=== PATIENT | female | born 2005 | race Two or more races ===

== ENCOUNTER → 2024-06-07 | Outpatient (CLI) | payer MEDICAID ==
[2024-06-07 12:00] LABS: Urine Bacteria MOD /hpf (None Seen); Urine Blood Negative /uL (Negative); Urine Clarity Ex.Turbid (Clear); Urine Color Colorless (Yellow); Urine Mucus FEW (None Seen); Urine Protein, UAD TRACE (Negative); Urine Specific Gravity 1.018 (1.001-1.035); Urine Urobilinogen Normal (Negative); Urine WBC 27 /hpf (0 - 5); Urine pH 6.5 (5.0-9.0)
[2024-06-07 12:06] LABS: Alanine Aminotransferase 23 U/L (7-40); Albumin 4.2 g/dL (3.2-4.8); Alkaline Phosphatase 115 U/L (46-116); Anion Gap 7 (5-15); Aspartate Aminotransferase 21 U/L (13-40); Calcium 9.8 mg/dL (8.7-10.4); Carbon Dioxide 25 mmol/L (20-31); Chloride 107 mmol/L (98-107); Cholesterol 225 mg/dL (< 200); Glucose 85 mg/dL (74-106); HDL Cholesterol 64 mg/dL (40-59); LDL Cholesterol 134 mg/dL (< 100); Potassium 3.9 mmol/L (3.5-5.1); Sodium 139 mmol/L (136-145); Triglycerides 209 mg/dL (< 150)
[2024-06-07 12:07] LABS: Bilirubin, Total 0.5 mg/dL (0.2-1.0); Total Protein 7.3 g/dL (5.7-8.2)
[2024-06-07 12:10] LABS: BUN/Creatinine Ratio 9.1 (10.0-20.0); Blood Urea Nitrogen < 5 mg/dL (9-23)
[2024-06-07 12:35] LABS: Amphetamine Screen, Urine Neg (NEGATIVE); Barbiturate Scree,Urine Neg (NEGATIVE); Basophils # (auto) 0.1 10 ^3/uL (0-0.2); Basophils % (auto) 0.8 % (0.0-2.0); Benzodiazephine Screen, Urine Neg (NEGATIVE); Cocaine Screen, Urine Neg (NEGATIVE); Eosinophils # (auto) 0.2 10 ^3/uL (0-0.8); Eosinophils % (auto) 2.3 % (0.0-7.0); Hematocrit 37.9 % (36.0-46.0); Hemoglobin 13.1 g/dL (12.2-16.2); Lymphocytes # (auto) 2.4 10 ^3/uL (0.4-5.4); Lymphocytes % (auto) 27.9 % (10.0-50.0); Mean Corpuscular Hemoglobin 28.5 pg (28.0-32.0); Mean Corpuscular Hgb Conc. 34.5 g/dL (32.0-36.0); Mean Corpuscular Volume 82.5 fL (80.0-100.0); Monocytes # (auto) 0.4 10 ^3/uL (0-1.3); Monocytes % (auto) 5.2 % (0.0-12.0); Neutrophils # (auto) 5.5 10 ^3/uL (1.6-8.6); Neutrophils % (auto) 63.8 % (37.0-80.0); Opiate Scree,Urine Neg (NEGATIVE); Platelet Count (auto) 230 10^3/uL (140-450); Red Blood Cells 4.59 10^6/uL (4.0-5.20); Red Cell Distribution Width 14.2 % (11.8-14.3); White Blood Cell 8.6 10^3/uL (4.4-10.8)
[2024-06-07 12:36] LABS: Cannabinoid Screen, Urine Neg (NEGATIVE); Phencyclidine Screen, Urine Neg (NEGATIVE)
[2024-06-08 05:08] LABS: RPR Non Reactive (Non Reactive)
[2024-06-08 07:06] LABS: Varicella Zoster IgG Antibody Reactive (Non Reactive)
[2024-06-09 12:07] LABS: QuantiFERON-TB Gold Plus Negative (Negative)
== END | disposition home or self-care (01) ==
LOC: LAB 11:02
DX: Z34.00 Encounter for supervision of normal first pregnancy, unspecified trimester (principal); Z31.430 Encounter of female for testing for genetic disease carrier status for procreative management; Z36.0 Encounter for antenatal screening for chromosomal anomalies; N39.0 Urinary tract infection, site not specified
CPT/HCPCS: 36415; 80053; 80061; 80307; 81001; 83036; 84439; 84443; 85025; 86592; 86762; 86787; 86850; 86900; 86901; 87340; 87902

== ENCOUNTER → 2024-07-18 | Outpatient (CLI) | payer MEDICAID ==
[2024-07-18 10:31] LABS: Basophils # (auto) 0.1 10 ^3/uL (0-0.2); Basophils % (auto) 0.8 % (0.0-2.0); Eosinophils # (auto) 0.1 10 ^3/uL (0-0.8); Eosinophils % (auto) 1.5 % (0.0-7.0); Hematocrit 36.5 % (36.0-46.0); Hemoglobin 12.2 g/dL (12.2-16.2); Lymphocytes # (auto) 2.1 10 ^3/uL (0.4-5.4); Lymphocytes % (auto) 26.3 % (10.0-50.0); Mean Corpuscular Hemoglobin 27.6 pg (28.0-32.0); Mean Corpuscular Hgb Conc. 33.5 g/dL (32.0-36.0); Mean Corpuscular Volume 82.5 fL (80.0-100.0); Monocytes # (auto) 0.5 10 ^3/uL (0-1.3); Monocytes % (auto) 5.8 % (0.0-12.0); Neutrophils # (auto) 5.2 10 ^3/uL (1.6-8.6); Neutrophils % (auto) 65.6 % (37.0-80.0); Nucleated Red Blood Cells % 0.1 %; Platelet Count (auto) 220 10^3/uL (140-450); Red Blood Cells 4.42 10^6/uL (4.0-5.20); Red Cell Distribution Width 14.8 % (11.8-14.3); White Blood Cell 7.9 10^3/uL (4.4-10.8)
[2024-07-18 10:53] LABS: INR 0.97 (0.9-1.15); Partial Thromboplastin Time 28.8 SEC (24.5-34.5); Prothrombin Time 10.3 sec (9.3-11.8)
[2024-07-18 11:03] LABS: Alanine Aminotransferase 28 U/L (7-40); Anion Gap 8 (5-15); Aspartate Aminotransferase 23 U/L (13-40); BUN/Creatinine Ratio 9.8 (10.0-20.0); Bilirubin, Total 0.5 mg/dL (0.2-1.0); Calcium 9.8 mg/dL (8.7-10.4); Carbon Dioxide 25 mmol/L (20-31); Chloride 105 mmol/L (98-107); Glucose 88 mg/dL (74-106); Potassium 4.2 mmol/L (3.5-5.1); Sodium 138 mmol/L (136-145); Total Protein 6.8 g/dL (5.7-8.2)
[2024-07-18 11:22] LABS: Alkaline Phosphatase 131 U/L (46-116); Blood Urea Nitrogen 6 mg/dL (9-23)
[2024-07-18 11:30] LABS: Protein, Urine 20.6 mg/dL (1-14)
[2024-07-18 11:32] LABS: Creatinine, Urine 162.3 mg/dL (30.0-125.0); Urine Protein/Creatinine Ratio 0.13
== END | disposition home or self-care (01) ==
LOC: LAB 10:14
DX: Z34.00 Encounter for supervision of normal first pregnancy, unspecified trimester (principal)
CPT/HCPCS: 36415; 80053; 82570; 84156; 84550; 85025; 85610; 85730

== ENCOUNTER 2024-07-24 13:12 | Emergency (ER) | payer MEDICAID ==
[~2024-07-24] VITALS: Ht 177.8 cm; Wt 104.8 kg
[2024-07-24 14:12] LABS: Urine Bacteria MOD /hpf (None Seen); Urine Blood Negative /uL (Negative); Urine Clarity Turbid (Clear); Urine Color Light-Yellow (Yellow); Urine Mucus FEW (None Seen); Urine Protein, UAD Negative (Negative); Urine Specific Gravity 1.011 (1.001-1.035); Urine Squamous Epithelial Cell FEW /hpf (<5); Urine Urobilinogen Normal (Negative); Urine WBC 3 /hpf (0 - 5)
[2024-07-24 14:22] LABS: Basophils # (auto) 0.1 10 ^3/uL (0-0.2); Basophils % (auto) 0.8 % (0.0-2.0); Eosinophils # (auto) 0.2 10 ^3/uL (0-0.8); Eosinophils % (auto) 2.9 % (0.0-7.0); Hematocrit 35.8 % (36.0-46.0); Hemoglobin 11.9 g/dL (12.2-16.2); Lymphocytes # (auto) 1.9 10 ^3/uL (0.4-5.4); Lymphocytes % (auto) 26.9 % (10.0-50.0); Mean Corpuscular Hemoglobin 27.6 pg (28.0-32.0); Mean Corpuscular Hgb Conc. 33.2 g/dL (32.0-36.0); Mean Corpuscular Volume 83.2 fL (80.0-100.0); Monocytes # (auto) 0.5 10 ^3/uL (0-1.3); Monocytes % (auto) 7.5 % (0.0-12.0); Neutrophils # (auto) 4.5 10 ^3/uL (1.6-8.6); Neutrophils % (auto) 61.9 % (37.0-80.0); Platelet Count (auto) 226 10^3/uL (140-450); Red Blood Cells 4.31 10^6/uL (4.0-5.20); Red Cell Distribution Width 14.4 % (11.8-14.3); White Blood Cell 7.2 10^3/uL (4.4-10.8)
--- NOTE | 2024-07-24 14:29 | DVH ---
Procedure: US OB ULTRASOUND COMP GTR 14 WKS 07/24/2024 01:32 PM HISTORY: ab pain COMPARISON: None TECHNIQUE: Sonogram of the gravid uterus was performed. FINDINGS: Single living intrauterine gestation. Presentation: Cephalic Placenta: Posterior with no evidence for previa or abruption heart rate: 160 bpm DVP: 2.9 cm Maternal cervix: Closed, 3.4 cm in the transabdominal study The following measurements were obtained: Biparietal diameter: 6.2 cm corresponding to 25 weeks and 1 day Head Circumference: 22.7 cm corresponding to 24 weeks and 5 days Abdominal Circumference: 20.3 cm corresponding to 24 weeks and 6 days Femoral Length: 4.3 cm corresponding to 24 weeks and 0 day Average Ultrasound Age: 24 weeks and 5 days Estimated Date of Delivery by US: 11/08/2024 Estimated Weight: 709 g corresponding to 41st percentile based on LMP dating IMPRESSION: 1. Single currently living intrauterine gestation, as described above.
[2024-07-24 14:31] LABS: Chloride 106 mmol/L (98-107); Potassium 3.9 mmol/L (3.5-5.1); Sodium 139 mmol/L (136-145)
[2024-07-24 14:32] LABS: Anion Gap 7 (5-15); Carbon Dioxide 26 mmol/L (20-31)
[2024-07-24 14:33] LABS: Calcium 9.3 mg/dL (8.7-10.4)
[2024-07-24 14:38] LABS: BUN/Creatinine Ratio 9.1 (10.0-20.0); Blood Urea Nitrogen < 5 mg/dL (9-23); Glucose 105 mg/dL (74-106)
--- NOTE | 2024-07-24 15:01 | ED.PDOC ---
History of Present Illness HPI Comments 19 y/o F presents with non-radiating, RUQ abdominal pain, lower back pain, and frontal headache for the past 3x days, today. Patient reports being 24x weeks , currently, and has been having intermittent abdominal pain that comes and goes with no specific pattern since initial unprovoked onset along with intermittent back pain and headache. She admits to having an GARAGE MANAGER provider Miracle CHERY. She denies having any additional relevant of pertinent Hx, such as any prescription medication use. She denies having any nausea, vomiting, diarrhea, vaginal bleeding, fever, chills, or other associated symptoms or modifiers at this time. Chief Complaint: Abdominal Pain Time Seen by MD: 14:20 Primary Care Provider: none Reviewed Notes: Nurses Notes, Medications, Allergies Allergies: Coded Allergies: NO KNOWN ALLERGIES (Unverified , 07/24/24) Home Meds Active Scripts Acetaminophen (Acetaminophen) 500 Mg Tab, 500 MG PO Q6HP PRN for 14 Days, #56 TAB 0 Refills Prov:RAVIN PARR NP 07/24/24 Information Source: Patient Mode of Arrival: Ambulatory Severity: Moderate Timing: Days Duration: Since onset Prehospital treatment: None Past Medical History Past Medical History (Other): obesity Surgical History: Denies all surgeries MEDICAID BILLING SPECIALIST History: Denies all MEDICAID BILLING SPECIALIST Hx Family History Family History: Reviewed,noncontributory to illness, Unknown Social History Smoker: Non-Smoker Alcohol: Denies ETOH Use Drugs: Denies Drug Use Lives In: Home Gastrointestinal: reports: abdominal pain Neurological: reports: headache Musculoskeletal: reports: back pain All Other Systems: Reviewed and Negative (negative unless otherwise stated above or in HPI) Physical Exam General Appearance: No Apparent Distress, Obese HEENT: Normal ENT Inspection, Pharynx Normal, TMs Normal Neck: Full Range of Motion, Non-Tender, Normal, Normal Inspection Respiratory: Chest Non-Tender, Lungs Clear, No Accessory Muscle Use, No Respiratory Distress, Normal Breath Sounds Cardiovascular: No Edema, No JVD, No Murmur, No Gallop, Normal Peripheral Pulses, Regular Rate/Rhythm Breast Exam: Deferred Gastrointestinal: No Organomegaly, Non Tender, No Pulsatile Mass, Normal Bowel Sounds, Soft Genitalia: Deferred Pelvic: Deferred Rectal: Deferred Extremities: No calf tenderness, Normal capillary refill, Normal inspection, Normal range of motion, Non-tender, No pedal edema Musculoskeletal : Location: Bilateral Extremity Location: Other (bilateral CVA - 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 Was a procedure done?: No Differential Dx Considerations may include: at-risk , threatened , gastritis, gastroenteritis, PUD, GERD, pyelonephritis, nephrolithiasis, cholelithiasis, cholecystitis, cystitis X-Ray, Labs, Meds, VS Vital Signs Date Time Temp Pulse Resp B/P (MAP) Pulse Ox O2 Delivery O2 Flow Rate FiO2 07/24/24 15:23 98.0 97 17 121/68 (85) 97 98.0 07/24/24 15:23 98 16 99 Room Air 07/24/24 13:28 98.0 102 17 127/69 (88) 99 Lab Test 07/24/24 14:07 07/24/24 13:48 Range/Units White Blood Count 7.2 4.4-10.8 10^3/uL Red Blood Count 4.31 4.0-5.20 10^6/uL Hemoglobin 11.9 L 12.2-16.2 g/dL Hematocrit 35.8 L 36.0-46.0 % Mean Corpuscular Volume 83.2 80.0-100.0 fL Mean Corpuscular Hemoglobin 27.6 L 28.0-32.0 pg Mean Corpuscular Hemoglobin Concent 33.2 32.0-36.0 g/dL Red Cell Distribution Width 14.4 H 11.8-14.3 % Platelet Count 226 140-450 10^3/uL Mean Platelet Volume 9.4 6.9-10.8 fL Neutrophils (%) (Auto) 61.9 37.0-80.0 % Lymphocytes (%) (Auto) 26.9 10.0-50.0 % Monocytes (%) (Auto) 7.5 0.0-12.0 % Eosinophils (%) (Auto) 2.9 0.0-7.0 % Basophils (%) (Auto) 0.8 0.0-2.0 % Neutrophils # (Auto) 4.5 1.6-8.6 10 ^3/uL Lymphocytes # (Auto) 1.9 0.4-5.4 10 ^3/uL Monocytes # (Auto) 0.5 0-1.3 10 ^3/uL Eosinophils # (Auto) 0.2 0-0.8 10 ^3/uL Basophils # (Auto) 0.1 0-0.2 10 ^3/uL Nucleated Red Blood Cells 0.0 % Sodium Level 139 136-145 mmol/L Potassium Level 3.9 3.5-5.1 mmol/L Chloride Level 106 98-107 mmol/L Carbon Dioxide Level 26 20-31 mmol/L Anion Gap 7 5-15 Blood Urea Nitrogen < 5 L 9-23 mg/dL Creatinine 0.55 0.550-1.02 mg/dL Glomerular Filtration Rate Calc 134 >90 mL/min BUN/Creatinine Ratio 9.1 L 10.0-20.0 Serum Glucose 105 74-106 mg/dL Calcium Level 9.3 8.7-10.4 mg/dL Beta HCG, Quantitative 4692.4 H 1.5-4.2 mIU/mL Urine Color Light-yellow Yellow Urine Clarity Turbid H Clear Urine pH 6.0 5.0-9.0 Urine Specific [place] 1.011 1.001-1.035 Urine Protein Negative Negative Urine Ketones Negative Negative Urine Blood Negative Negative /uL Urine Nitrite Negative Negative Urine Bilirubin Negative Negative Urine Urobilinogen Normal Negative mg/dL Urine Leukocyte Esterase Trace Negative /uL Urine RBC 1 0 - 4 /hpf Urine WBC 3 0 - 5 /hpf Urine Squamous Epithelial Cells Few <5 /hpf Urine Bacteria Mod H None Seen /hpf Urine Mucus Few None Seen Urine Glucose Normal Normal mg/dL [place] [address] Ph: [phone] DIAGNOSTIC IMAGING Diagnostic Imaging Report : [id number] Signed PATIENT: ANYA RICHARDSON ACCT: [id number] UNIT: [id number] : 2005 LOC: ER ROOM / BED: / AGE / SEX: 19 / F ADM STATUS: REG ER SERVICE 1331 ORDERING PHYSICIAN: RAVIN PARR NP PROCEDURE(s): OBUS - OB ULTRASOUND COMP GTR 14 WKS REASON: ab pain ORDER NUMBER(s): [id number], ACCESSION NUMBER(s): [id number] Procedure: US OB ULTRASOUND COMP GTR 14 WKS 07/24/2024 01:32 PM HISTORY: ab pain COMPARISON: None TECHNIQUE: Sonogram of the gravid uterus was performed. FINDINGS: Single living intrauterine gestation. Presentation: Cephalic Placenta: Posterior with no evidence for previa or abruption heart rate: 160 bpm DVP: 2.9 cm Maternal cervix: Closed, 3.4 cm in the transabdominal study The following measurements were obtained: Biparietal diameter: 6.2 cm corresponding to 25 weeks and 1 day Head Circumference: 22.7 cm corresponding to 24 weeks and 5 days Abdominal Circumference: 20.3 cm corresponding to 24 weeks and 6 days Femoral Length: 4.3 cm corresponding to 24 weeks and 0 day Average Ultrasound Age: 24 weeks and 5 days Estimated Date of Delivery by US: 11/08/2024 Estimated Weight: 709 g corresponding to 41st percentile based on LMP dating IMPRESSION: 1. Single currently living intrauterine gestation, as described above. ATED BY: KIARA DEAN MD DICTATED DATE/TIME: 07/24/241426 SIGNED BY: KIARA DEAN MD SIGNED DATE/TIME: 07/24/241426 CC: X-Ray, Labs, Meds, VS Comment On reevaluation, patient had symptomatic improvement. Patient is stable for discharge at this time. External notes reviewed. Test results and diagnostic imaging interpreted. All diagnostic findings, discharge care, education and instructions provided Follow-up with PCP in 2 to 3 days Patient verbalized understanding and agreed to treatment plan Vital signs stable, afebrile, no acute distress noted Patient ambulatory with strong steady gait Advised to return precautions for any new or worsening symptoms, return to ER immediately for re-evaluation Patient is aware that the purpose of this visit was for an acute medical emergency requiring emergent stabilization. Chronic conditions, including malignancies have not been ruled out. Patient is instructed to follow up with PCP as directed and discharge instructions for continued care and workup. If unable to arrange follow-up, patient is to return to the emergency department for reassessment. Patient (parent or legal guardian if applicable) was given verbal and written discharge instructions and acknowledges understanding. Time of 1ST Reevaluation: 14:50 Reevaluation 1ST: Improved Patient Education/Counseling: Diagnosis, Treatment Family Education/Counseling: No Family Present Departure 1 Departure Time of Disposition: 15:19 Impression: Primary Impression: Headache Qualified Codes: R51.9 - Headache, unspecified Additional Impressions: Back pain Qualified Codes: M54.9 - Dorsalgia, unspecified Qualified Codes: Z3A.24 - 24 weeks gestation of Disposition: HOME / SELF CARE / HOMELESS Condition: Stable e-Prescriptions Acetaminophen (Acetaminophen) 500 Mg Tab 500 MG PO Q6HP PRN for 14 Days, #56 TAB 0 Refills Prov: RAVIN PARR NP 07/24/24 Critical Care Note Critical Care Time?: No Stability Stability form required: No Heart Score Heart Score: Heart Score Response (Comments) Value History N/A 0 EKG N/A 0 Age N/A 0 Risk Factors N/A 0 Troponin N/A 0 Total 0 I personally scribed for RAVIN PARR NP ([email or web address]) on 07/24/24 at 15:01. Electronically submitted by Jus Garza ([email or web address]). RAVIN PARR NP Jul 24, 2024 15:01
[2024-07-24] MEDS ORDERED: ACET500T58 PO (15:19)
[2024-07-24 15:23] VITALS: BP 121/68; PULSE 98; RESP 16; TEMP 98; O2SAT 99
== END 2024-07-24 15:26 | disposition home or self-care (01) ==
LOC: ER 13:12
DX: O26.892 Other specified pregnancy related conditions, second trimester (principal); R10.2 Pelvic and perineal pain; O99.212 Obesity complicating pregnancy, second trimester; R51.9 Headache, unspecified; M54.50 Low back pain, unspecified; R10.11 Right upper quadrant pain; Z36.87 Encounter for antenatal screening for uncertain dates; Z36.89 Encounter for other specified antenatal screening; Z3A.25 25 weeks gestation of pregnancy
CPT/HCPCS: 36415; 76805; 80048; 81001; 84702; 85025

== ENCOUNTER → 2024-08-16 | Outpatient (CLI) | payer MEDICAID ==
[~2024-08-16] MED LIST: ACET500T58 PO
[2024-08-16 11:39] LABS: Basophils # (auto) 0 10 ^3/uL (0-0.2); Basophils % (auto) 0.3 % (0.0-2.0); Eosinophils # (auto) 0.1 10 ^3/uL (0-0.8); Eosinophils % (auto) 1.4 % (0.0-7.0); Hematocrit 36.6 % (36.0-46.0); Hemoglobin 12.3 g/dL (12.2-16.2); Lymphocytes % (auto) 22.3 % (10.0-50.0); Mean Corpuscular Hemoglobin 27.1 pg (28.0-32.0); Mean Corpuscular Hgb Conc. 33.6 g/dL (32.0-36.0); Mean Corpuscular Volume 80.6 fL (80.0-100.0); Monocytes # (auto) 0.5 10 ^3/uL (0-1.3); Monocytes % (auto) 5.3 % (0.0-12.0); Neutrophils # (auto) 6.4 10 ^3/uL (1.6-8.6); Neutrophils % (auto) 70.7 % (37.0-80.0); Nucleated Red Blood Cells % 0.1 %; Platelet Count (auto) 240 10^3/uL (140-450); Red Blood Cells 4.53 10^6/uL (4.0-5.20); White Blood Cell 9.1 10^3/uL (4.4-10.8)
[2024-08-16 11:49] LABS: Alanine Aminotransferase 16 U/L (7-40); Albumin 4.1 g/dL (3.2-4.8); Anion Gap 7 (5-15); Aspartate Aminotransferase 15 U/L (13-40); Calcium 9.7 mg/dL (8.7-10.4); Carbon Dioxide 24 mmol/L (20-31); Chloride 106 mmol/L (98-107); Glucose 86 mg/dL (74-106); Potassium 4.3 mmol/L (3.5-5.1); Sodium 137 mmol/L (136-145)
[2024-08-16 11:50] LABS: Bilirubin, Total 0.4 mg/dL (0.2-1.0); Total Protein 6.9 g/dL (5.7-8.2)
[2024-08-16 11:55] LABS: Alkaline Phosphatase 148 U/L (46-116); BUN/Creatinine Ratio 8.5 (10.0-20.0); Blood Urea Nitrogen < 5 mg/dL (9-23)
[2024-08-17 22:06] LABS: Chlamydia Trachomatis, NAA Negative (Negative); Neisseria gonorrhoeae, NAA Negative (Negative)
== END | disposition home or self-care (01) ==
LOC: LAB 11:00
PROVIDERS: ATTEND Obstetrics & Gynecology
DX: Z34.00 Encounter for supervision of normal first pregnancy, unspecified trimester (principal)
CPT/HCPCS: 36415; 80053; 82951; 83036; 85025; 86703; 87086

== ENCOUNTER 2024-08-31 12:00 | Observation (INO) | payer MEDICAID ==
[~2024-08-31] VITALS: Ht 172.7 cm; Wt 104.3 kg
--- NOTE | 2024-08-31 14:03 | DVHDS2 ---
Physician Discharge Progress N Final Diagnosis: cholestasis Operations or Procedures: Operations or Procedures carlosbaileechase Commentary: Commentary start actigal 300mg bid Condition on Discharge: Good Disposition: Home Discharge Instructions: Diet: Regular Activity: No Restrictions, As Tolerated Medications: actigal Follow Up Care: Specialist: 4d Discharge Statement: "Patient was advised to return to the ER or call 911 if any headaches, dizziness, shortness of breath, chest pain, abdominal pain, bleeding, fevers, or worsening of medical condition. Patient was counseled about treatment plan, medications, possible side effects, patientverbalized understanding. All questions were answered to the best of my ability. This discharge took greater then 30 minutes in planning, reviewing documentation, counseling the patient, and discussing with other team members." DAKSHA SMITH DO Aug 31, 2024 14:03
--- NOTE | 2024-08-31 14:31 | DVH ---
OB ULTRASOUND COMPLETE: HISTORY: EVELIO check TECHNIQUE: Multiple transabdominal real-time grayscale images of the gravid uterus with duplex Dopple r color flow and M-mode spectral analysis. FINDINGS: EVELIO equals 12.3 cm. Posterior placenta. Cephalic presentation. heart rate 141. IMPRESSION: EVELIO as above.
[2024-08-31 14:38] LABS: Basophils # (auto) 0 10 ^3/uL (0-0.2); Basophils % (auto) 0.3 % (0.0-2.0); Eosinophils # (auto) 0.1 10 ^3/uL (0-0.8); Eosinophils % (auto) 1.7 % (0.0-7.0); Hematocrit 36.9 % (36.0-46.0); Hemoglobin 12.4 g/dL (12.2-16.2); Lymphocytes # (auto) 2.2 10 ^3/uL (0.4-5.4); Lymphocytes % (auto) 27.8 % (10.0-50.0); Mean Corpuscular Hemoglobin 27.2 pg (28.0-32.0); Mean Corpuscular Hgb Conc. 33.7 g/dL (32.0-36.0); Mean Corpuscular Volume 80.8 fL (80.0-100.0); Monocytes # (auto) 0.5 10 ^3/uL (0-1.3); Monocytes % (auto) 6.5 % (0.0-12.0); Neutrophils # (auto) 5.1 10 ^3/uL (1.6-8.6); Neutrophils % (auto) 63.7 % (37.0-80.0); Nucleated Red Blood Cells % 0.1 %; Platelet Count (auto) 229 10^3/uL (140-450); Red Blood Cells 4.57 10^6/uL (4.0-5.20); White Blood Cell 8.1 10^3/uL (4.4-10.8)
[2024-08-31 14:52] LABS: Alanine Aminotransferase 19 U/L (7-40); Albumin 4.3 g/dL (3.2-4.8); Anion Gap 8 (5-15); Aspartate Aminotransferase 18 U/L (13-40); Bilirubin, Total 0.3 mg/dL (0.2-1.0); Calcium 9.6 mg/dL (8.7-10.4); Carbon Dioxide 23 mmol/L (20-31); Chloride 105 mmol/L (98-107); Glucose 89 mg/dL (74-106); Potassium 4.2 mmol/L (3.5-5.1)
[2024-08-31 14:53] LABS: Alkaline Phosphatase 186 U/L (46-116); BUN/Creatinine Ratio 9.4 (10.0-20.0); Blood Urea Nitrogen < 5 mg/dL (9-23); Sodium 136 mmol/L (136-145)
[2024-08-31] MEDS ORDERED: PREN-96 PO (15:03)
== END 2024-08-31 15:13 | disposition home or self-care (01) ==
LOC: UNDOADMOB 12:00 → LDRP 12:00 → UNDODISOB 15:13
PROVIDERS: ADMIT Obstetrics & Gynecology; ATTEND Obstetrics & Gynecology
DX: O26.643 Intrahepatic cholestasis of pregnancy, third trimester (principal); K83.1 Obstruction of bile duct; Z98.890 Other specified postprocedural states; Z79.899 Other long term (current) drug therapy; Z3A.30 30 weeks gestation of pregnancy
CPT/HCPCS: 36415; 59025; 76815; 80053; 81002; 85025; 94760; G0378

== ENCOUNTER 2024-09-05 07:33 | Observation (INO) | payer MEDICAID ==
[~2024-09-05 07:33] MED LIST changes: +PREN-96 PO
== END 2024-09-05 12:51 | disposition home or self-care (01) ==
LOC: LDRP 11:05 → UNDOADMOB 11:05 → LDRP 11:49 → UNDODISOB 12:51
PROVIDERS: ADMIT Obstetrics & Gynecology; ATTEND Obstetrics & Gynecology
DX: O26.643 Intrahepatic cholestasis of pregnancy, third trimester (principal); K83.1 Obstruction of bile duct; Z98.890 Other specified postprocedural states; Z79.899 Other long term (current) drug therapy; Z3A.31 31 weeks gestation of pregnancy
CPT/HCPCS: 59025; 81002; 94760; G0378

== ENCOUNTER → 2024-09-08 | Outpatient (CLI) | payer MEDICAID ==
[2024-09-08 11:18] LABS: Basophils # (auto) 0.1 10 ^3/uL (0-0.2); Basophils % (auto) 0.6 % (0.0-2.0); Eosinophils # (auto) 0.1 10 ^3/uL (0-0.8); Eosinophils % (auto) 1.4 % (0.0-7.0); Hemoglobin 12.5 g/dL (12.2-16.2); Lymphocytes # (auto) 2.1 10 ^3/uL (0.4-5.4); Lymphocytes % (auto) 20.6 % (10.0-50.0); Mean Corpuscular Hgb Conc. 33.8 g/dL (32.0-36.0); Mean Corpuscular Volume 79.6 fL (80.0-100.0); Monocytes # (auto) 0.7 10 ^3/uL (0-1.3); Monocytes % (auto) 6.6 % (0.0-12.0); Neutrophils # (auto) 7.3 10 ^3/uL (1.6-8.6); Neutrophils % (auto) 70.8 % (37.0-80.0); Nucleated Red Blood Cells % 0.1 %; Platelet Count (auto) 251 10^3/uL (140-450); Red Blood Cells 4.64 10^6/uL (4.0-5.20); Red Cell Distribution Width 14.8 % (11.8-14.3); White Blood Cell 10.2 10^3/uL (4.4-10.8)
[2024-09-08 11:48] LABS: Alanine Aminotransferase 14 U/L (7-40); Albumin 4.4 g/dL (3.2-4.8); Anion Gap 10 (5-15); Aspartate Aminotransferase 18 U/L (13-40); BUN/Creatinine Ratio 10.5 (10.0-20.0); Carbon Dioxide 24 mmol/L (20-31); Chloride 102 mmol/L (98-107); Glucose 79 mg/dL (74-106); Potassium 4.1 mmol/L (3.5-5.1)
[2024-09-08 11:49] LABS: Bilirubin, Total 0.4 mg/dL (0.2-1.0); Total Protein 7.1 g/dL (5.7-8.2)
[2024-09-08 11:52] LABS: Alkaline Phosphatase 194 U/L (46-116); Blood Urea Nitrogen 6 mg/dL (9-23); Sodium 136 mmol/L (136-145)
== END | disposition home or self-care (01) ==
LOC: LAB 10:25
PROVIDERS: ATTEND Obstetrics & Gynecology
DX: O26.649 Intrahepatic cholestasis of pregnancy, unspecified trimester (principal); Z3A.00 Weeks of gestation of pregnancy not specified
CPT/HCPCS: 36415; 80053; 85025

== ENCOUNTER 2024-09-12 10:08 | Observation (INO) | payer MEDICAID ==
--- NOTE | 2024-09-20 11:56 | DVH ---
BIOPHYSICAL PROFILE HISTORY: polyhydramnios Comparison Study: 08/31/2024 TECHNIQUE: Multiple real-time grayscale sonographic images through the gravid uterus of the fetus wi th duplex Doppler color flow and M-mode spectral analysis FINDINGS: BIOPHYSICAL PROFILE: breathing score: 2 movement score: 2 tone score: 2 Quantitative EVELIO score: 2 (EVELIO: 19.1 Cm.) Total score: 8 The cervix is not visualized Single live fetus in cephalic presentation. heart rate 138 beats per minute. Posterior placenta without previa or abruption IMPRESSION: Biophysical profile score: 8
--- NOTE | 2024-09-20 19:47 | DVHDS2 ---
Physician Discharge Progress N Final Diagnosis: testing for polyhydramnios Operations or Procedures: Operations or Procedures 19yo IUP@33.1wks, +FM, denies UCs/LOF/VB VSS NST reactive FKC/PTL precautions reviewed Other Interventions Other Interventions [facility] [id number] [place] [address] Ph: [phone] DIAGNOSTIC IMAGING Diagnostic Imaging Report : [id number] Signed PATIENT: ANYA RICHARDSON ACCT: [id number] UNIT: [id number] : 2005 LOC: LD ROOM / BED: [facility] / A AGE / SEX: 19 / F ADM STATUS: ADM IN SERVICE 1119 ORDERING PHYSICIAN: MAYRA MCKNIGHT CNM PROCEDURE(s): BPP - BIOPHYSICAL PROFILE REASON: polyhydramnios ORDER NUMBER(s): [id number], ACCESSION NUMBER(s): [id number] BIOPHYSICAL PROFILE HISTORY: polyhydramnios Comparison Study: 08/31/2024 TECHNIQUE: Multiple real-time grayscale sonographic images through the gravid uterus of the fetus with duplex Doppler color flow and M-mode spectral analysis FINDINGS: BIOPHYSICAL PROFILE: breathing score: 2 movement score: 2 tone score: 2 Quantitative EVELIO score: 2 (EVELIO: 19.1 Cm.) Total score: 8 The cervix is not visualized Single live fetus in cephalic presentation. heart rate 138 beats per minute. Posterior placenta without previa or abruption IMPRESSION: Biophysical profile score: 8 ATED BY: SHANKAR OLIVER MD DICTATED DATE/TIME: 09/20/24 1154 SIGNED BY: SHANKAR OLIVER MD SIGNED DATE/TIME: 09/20/24 1154 CC: Condition on Discharge: Stable Disposition: Home Discharge Instructions: Diet: Regular Activity: No Restrictions, As Tolerated Follow Up/Referral: as scheduled Medications: see med list Follow Up Care: Specialist: f/u in 1 wk Discharge Statement: "Patient was advised to return to the ER or call 911 if any headaches, dizziness, shortness of breath, chest pain, abdominal pain, bleeding, fevers, or worsening of medical condition. Patient was counseled about treatment plan, medications, possible side effects, patientverbalized understanding. All questions were answered to the best of my ability. This discharge took greater then 30 minutes in planning, reviewing documentation, counseling the patient, and discussing with other team members." Visit Coding OBGYN Date of Service: Sep 20, 2024 Billing Provider: MAYRA MCKNIGHT CNM [employer]RB[employer] PLANNER Common Visit Codes: 29075-LTYFQZC OBS CARE (HIGH) URBAN PLANNER Procedure Codes: 73846-03- NON-STRESS TEST MAYRA MCKNIGHT CNM Sep 20, 2024 19:47
== END 2024-09-20 12:49 | disposition home or self-care (01) ==
LOC: LDRP 09-20 10:55
PROVIDERS: ADMIT Obstetrics & Gynecology; ATTEND Obstetrics & Gynecology
DX: O40.3XX0 Polyhydramnios, third trimester, not applicable or unspecified (principal); Z3A.33 33 weeks gestation of pregnancy; Z79.899 Other long term (current) drug therapy; Z98.890 Other specified postprocedural states
CPT/HCPCS: 59025; 76818; 81002; 94760; G0378

== ENCOUNTER 2024-09-27 06:33 | Observation (INO) | payer MEDICAID ==
--- NOTE | 2024-09-27 13:10 | DVH ---
Procedure: US BIOPHYSICAL PROFILE 09/27/2024 12:47 PM Indication: Polyhydramnios Comparison: US BIOPHYSICAL PROFILE on DOS: 09/20/24 Technique: Sonogram of gravid uterus utilizing grayscale and color techniques. FINDINGS: Single living intrauterine gestation. Presentation: Cephalic Placenta: Posterior heart rate: 140 bpm EVELIO: 15.3 cm, DVP: 5.2 cm Maternal cervix: Not visualized Biophysical Profile: breathing score: 2 movement score: 2 tone: 2 Quantitative EVELIO score: 2 Total score: 8/8 IMPRESSION: 1. Single living as above. 2. Biophysical profile score: 8/8.
--- NOTE | 2024-09-27 20:04 | DVHDS2 ---
Physician Discharge Progress N Final Diagnosis: polyhydramnios, now resolved normal EVELIO/DVP Operations or Procedures: Operations or Procedures 19yo IUP@34.1wks, +FM, denies LOF/VB/UCs VSS NST reactive (verified by 2 RNs) FKC/PTL precautions reviewed Dr. Nieves consulted, agrees with POC. Other Interventions Other Interventions [place] [address] Ph: [phone] DIAGNOSTIC IMAGING Diagnostic Imaging Report : [id number] Signed PATIENT: ANYA RICHARDSON ACCT: [id number] UNIT: [id number] : 2005 LOC: [facility] ROOM / BED: TRIAGE2 / A AGE / SEX: 19 / F ADM STATUS: ADM IN SERVICE 1234 ORDERING PHYSICIAN: MAYRA MCKNIGHT CNM PROCEDURE(s): BPP - BIOPHYSICAL PROFILE REASON: Polyhydramnios ORDER NUMBER(s): [id number], ACCESSION NUMBER(s): [id number] Procedure: US BIOPHYSICAL PROFILE 09/27/2024 12:47 PM Indication: Polyhydramnios Comparison: US BIOPHYSICAL PROFILE on DOS: 09/20/24 Technique: Sonogram of gravid uterus utilizing grayscale and color techniques. FINDINGS: Single living intrauterine gestation. Presentation: Cephalic Placenta: Posterior heart rate: 140 bpm EVELIO: 15.3 cm, DVP: 5.2 cm Maternal cervix: Not visualized Biophysical Profile: breathing score: 2 movement score: 2 tone: 2 Quantitative EVELIO score: 2 Total score: 8/8 IMPRESSION: 1. Single living as above. 2. Biophysical profile score: 8/8. ATED BY: KIARA DEAN MD DICTATED DATE/TIME: 09/27/24 130 SIGNED BY: KIARA DEAN MD SIGNED DATE/TIME: 09/27/24 130 CC: Condition on Discharge: Stable Disposition: Home Discharge Instructions: Diet: Regular Activity: No Restrictions, As Tolerated Medications: see med list Follow Up Care: Specialist: f/u with Dr. Nieves as scheduled for care Discharge Statement: "Patient was advised to return to the ER or call 911 if any headaches, dizziness, shortness of breath, chest pain, abdominal pain, bleeding, fevers, or worsening of medical condition. Patient was counseled about treatment plan, medications, possible side effects, patientverbalized understanding. All questions were answered to the best of my ability. This discharge took greater then 30 minutes in planning, reviewing documentation, counseling the patient, and discussing with other team members." Visit Coding OBGYN Date of Service: Sep 27, 2024 Billing Provider: MAYRA MCKNIGHT CNM INSTALLATION TECH Common Visit Codes: [id number] OBS CARE (LOW) MAYRA MCKNIGHT CNM Sep 27, 2024 20:04
== END 2024-09-27 13:13 | disposition home or self-care (01) ==
LOC: LDRP 10:57
PROVIDERS: ADMIT Obstetrics & Gynecology; ATTEND Obstetrics & Gynecology
DX: O40.3XX0 Polyhydramnios, third trimester, not applicable or unspecified (principal); Z3A.34 34 weeks gestation of pregnancy; Z79.899 Other long term (current) drug therapy
CPT/HCPCS: 59025; 76819; 81002; 94760; G0378; 76818

== ENCOUNTER 2024-10-03 21:08 | Emergency (ER) | payer MEDICAID ==
[~2024-10-03] VITALS: Ht 172.7 cm; Wt 111.0 kg
[2024-10-03 21:23] VITALS: BP 108/76; RESP 18
--- NOTE | 2024-10-04 00:26 | ED.PDOC ---
History of Present Illness(SKN HPI Comments 19 YEAR OLD FEMALE PRESENTS TO ER FOR WOUND CHECK. PATIENT REPORTS SHE HAS BEEN EXPERIENCING 8/10 TENDER LUMP TO LEFT GROIN X3 DAYS AND PRESENTS TO ER TODAY FOR WOUND CHECK. DENIES USE OF MEDICATIONS FOR CURRENT SYMPTOMS. REPORTS THAT SHE CURRENTLY IS 35 WEEKS , A0 AND REPORTS THAT SHE HAS BEEN FOLLOWING UP WITH HER OBGYN DIRECTED, DENYING ANY KNOWN COMPLICATIONS DURING CURRENT . DENIES FEVER, BODY ACHES, CHILLS, SHORTNESS OF BREATH, CHEST PAIN, ABDOMINAL/PELVIC PAIN OR ANY FURTHER SYMPTOMS/COMPLAINTS Chief Complaint: Abscess Time Seen by MD: 21:38 Primary Care Provider: EMMY History of Present Illness: Nurses Notes, Medications, Allergies Allergies: Coded Allergies: NO KNOWN ALLERGIES (Unverified , 07/24/24) Home Meds Active Scripts Cephalexin Monohydrate (Cephalexin) 500 Mg Cap, 1 CAP PO QID for 7 Days, #28 CAP 0 Refills Prov:JESSA DOE 10/04/24 Acetaminophen (Acetaminophen) 500 Mg Tab, 500 MG PO Q4HPRN, #30 TAB 0 Refills Prov:JESSA DOE 10/04/24 Acetaminophen (Acetaminophen) 500 Mg Tab, 500 MG PO Q6HP PRN for 14 Days, #56 TAB 0 Refills Prov:RAVIN PARR NP 07/24/24 Reported Medications Vit W/ Ferrous Fumara ( One Daily) Daily Tab, 1 TAB PO DAILY, #90 TAB 3 Refills 08/31/24 Information Source: Patient Mode of Arrival: Ambulatory Past Medical History PAST MEDICAL HISTORY: Denies Surgical History: Denies all surgeries UNIVERSITY RELATIONS RECRUITER History: Denies all UNIVERSITY RELATIONS RECRUITER Hx Family History Family History: Unknown Social History Smoker: Non-Smoker Alcohol: Denies ETOH Use Drugs: Denies Drug Use Lives In: Home Constitutional: denies: chills, diaphoresis, fatigue, fever, malaise, sweats, weakness, others EENTM: denies: blurred vision, double vision, ear bleeding, ear discharge, ear drainage, ear pain, ear ringing, eye pain, eye redness, hearing loss, mouth pain, mouth swelling, nasal discharge, nose bleeding, nose congestion, nose pain, photophobia, tearing, throat pain, throat swelling, voice changes, others Respiratory: denies: cough, hemoptysis, orthopnea, SOB at rest, shortness of breath, SOB with excertion, stridor, wheezing, others Cardiovascular: denies: chest pain, dizzy spells, diaphoresis, Dyspnea on exertion, edema, irregular heart beat, left arm pain, lightheadedness, palpitations, PND, syncope, others Gastrointestinal: denies: abdomen distended, abdominal pain, blood streaked bowels, constipated, diarrhea, dysphagia, difficulty swallowing, hematemesis, melena, nausea, poor appetite, poor fluid intake, rectal bleeding, rectal pain, vomiting, others Genitourinary: reports: others ( STATED IN HPI) Neurological: denies: dizziness, fainting, headache, left sided numbness, left sided weakness, numbness, paresthesia, pre-existing deficit, right sided numbness, right sided weakness, seizure, speech problems, tingling, tremors, weakness, others Musculoskeletal: denies: back pain, gout, joint pain, joint swelling, muscle pain, muscle stiffness, neck pain, others Integumetry: reports: others ( STATED IN HPI) Allergic/Immunocompromised: denies: Difficulty Healing, Frequent Infections, Hives, Itching, others Hematologic/Lymphatic: denies: anemia, blood clots, easy bleeding, easy bruising, swollen glands, others Endocrine: denies: excessive hunger, excessive sweating, excessive thirst, excessive urination, flushing, intolerance to cold, intolerance to heat, unexplained weight gain, unexplained weight loss, others Psychiatric: denies: anxiety, bipolar disorder, depression, hopeless, panic disorder, schizophrenia, sleepless, suicidal, others Physical Exam General Appearance: No Apparent Distress, Obese HEENT: PERRL/EOMI Neck: Full Range of Motion, Non-Tender, Normal Respiratory: Chest Non-Tender, Lungs Clear, No Accessory Muscle Use, No Respiratory Distress, Normal Breath Sounds Cardiovascular: No Murmur, No Gallop, Regular Rate/Rhythm Breast Exam: Deferred Gastrointestinal: Non Tender (NO TTP TO ABDOMEN/PELVIC REGION NOTED), No Pulsatile Mass, Soft Genitalia: Deferred Pelvic: Deferred Rectal: Deferred Extremities: No calf tenderness, Normal capillary refill, Normal range of motion Musculoskeletal : Extremity Location: Groin (FEMALE NURSE SURVEILLANCE MANAGER PRESENT- 2CM PAPULE WITH MINIMAL SWELLING/TTP/ERYTHEMA LOCALIZED SURROUNDING HAIR FOLLLICLE OF LEFT GROIN. NO FLUCTUANCE/DRAINAGE/FURTHER SKIN CHANGES NOTED. PULSES INTACT) Neurologic: Alert, high reach operator II-XII nml as Tested, No Motor Deficits, Normal Affect, Normal Mood, No Sensory Deficits Cerebellar Function: Normal Reflexes: Normal Skin: Dry, Warm Peripheral Pulses: 2+ femoral (R), 2+ femoral (L), 2+ dorsalis pedis (R), 2+ dorsalis pedis (L), 2+ Radial (R), 2+ Radial (L), 2+ Brachial (R), 2+ Brachial (L) Lymphatic: No Adenopathy Was a procedure done? Was a procedure done?: No Sedation Sedation?: No Differential Diagnosis (INTG) Differential Diagnosis: Abrasion, Puncture Wound Differential Diagnosis: Abscess Differential Diagnosis: Retained Foreign Body X-Ray, Labs, Meds, VS Vital Signs Date Time Temp Pulse Resp B/P (MAP) Pulse Ox O2 Delivery O2 Flow Rate FiO2 10/04/24 00:31 109 97 10/03/24 21:23 98.1 136 18 108/76 (87) 96 TYLENOL 650 MG P.O. ORDERED PATIENT IN NO DISTRESS PRIOR TO DISCHARGE ADVISED TO ALTERNATE WARM COMPRESSES ON/OFF ADVISED TO FOLLOW UP WITH PCP AND OBGYN IN 1-2 DAYS PATIENT VERBALIZED UNDERSTANDING AND AGREEABLE WITH CURRENT PLAN OF CARE ADVISED TO RETURN TO ER IMMEDIATELY IF SYMPTOMS WORSEN Time of 1ST Reevaluation: 00:02 Reevaluation 1ST: N/A Patient Education/Counseling: Diagnosis, Treatment, Prognosis, Need For Follow Up Family Education/Counseling: No Family Present Departure 1 Departure Time of Disposition: 00:30 Impression: Primary Impression: Folliculitis Additional Impression: Third trimester Disposition: 01 HOME / SELF CARE / HOMELESS Condition: Stable e-Prescriptions Cephalexin Monohydrate (Cephalexin) 500 Mg Cap 1 CAP PO QID for 7 Days, #28 CAP 0 Refills Prov: JESSA DOE 10/04/24 Acetaminophen (Acetaminophen) 500 Mg Tab 500 MG PO Q4HPRN, #30 TAB 0 Refills Prov: JESSA ODE 10/04/24 Discharged With: Self Critical Care Note Critical Care Time?: No Stability Stability form required: No Heart Score Heart Score: Heart Score Response (Comments) Value History N/A 0 EKG N/A 0 Age N/A 0 Risk Factors N/A 0 Troponin N/A 0 Total 0 JESSA DOE Oct 04, 2024 00:26
[2024-10-04] MEDS ORDERED: ACET500T58 PO (00:29)
[2024-10-04] MEDS ORDERED: CEPH500C PO (00:29)
[2024-10-04 00:31] VITALS: PULSE 109; O2SAT 97
[2024-10-04] MEDS: ACETAMINOPHEN 325 MG TAB PO ONE (00:37)
== END 2024-10-04 00:38 | disposition home or self-care (01) ==
LOC: ER 21:08
DX: O99.713 Diseases of the skin and subcutaneous tissue complicating pregnancy, third trimester (principal); L73.9 Follicular disorder, unspecified; Z3A.35 35 weeks gestation of pregnancy

== ENCOUNTER 2024-11-07 10:02 | Observation (INO) | payer MEDICAID ==
[~2024-11-07 10:02] MED LIST changes: +CEPH500C PO
--- NOTE | 2024-11-07 11:21 | DVH ---
BIOPHYSICAL PROFILE HISTORY: Term Comparison Study: 09/27/2024 TECHNIQUE: Multiple real-time grayscale sonographic images through the gravid uterus of the fetus wi th duplex Doppler color flow and M-mode spectral analysis FINDINGS: BIOPHYSICAL PROFILE: breathing score: 2 movement score: 2 tone score: 2 Quantitative EVELIO score: 2 (EVELIO: 11.6 Cm.) Total score: 8 The cervix is not visualized Single live fetus in cephalic presentation. heart rate 155 beats per minute. Posterior placenta without previa or abruption IMPRESSION: Biophysical profile score: 8/8
--- NOTE | 2024-11-08 12:31 | DVHDS2 ---
Physician Discharge Progress N Final Diagnosis: iup at 40wks Operations or Procedures: Operations or Procedures nst,sono Condition on Discharge: Good Disposition: Home Discharge Instructions: Diet: Regular Activity: No Restrictions, As Tolerated Medications: na Follow Up Care: Specialist: 2d Discharge Statement: "Patient was advised to return to the ER or call 911 if any headaches, dizziness, shortness of breath, chest pain, abdominal pain, bleeding, fevers, or worsening of medical condition. Patient was counseled about treatment plan, medications, possible side effects, patientverbalized understanding. All questions were answered to the best of my ability. This discharge took greater then 30 minutes in planning, reviewing documentation, counseling the patient, and discussing with other team members." Visit Coding OBGYN Date of Service: Nov 07, 2024 Billing Provider: DAKSHA SMITH DO FINAL EXPENSE AGENT Common Visit Codes: 35406-FHIDEAM OBS CARE (HIGH) FINAL EXPENSE AGENT Procedure Codes: 55079-15- NON-STRESS TEST DAKSHA SMITH DO Nov 08, 2024 12:31
== END 2024-11-07 11:53 | disposition home or self-care (01) ==
LOC: UNDOADMOB 10:02 → LDRP 10:02
PROVIDERS: ADMIT Obstetrics & Gynecology; ATTEND Obstetrics & Gynecology
DX: O48.0 Post-term pregnancy (principal); O40.3XX0 Polyhydramnios, third trimester, not applicable or unspecified; Z98.890 Other specified postprocedural states; Z79.899 Other long term (current) drug therapy; Z3A.40 40 weeks gestation of pregnancy
CPT/HCPCS: 59025; 76819; 81002; 94760; G0378

== ENCOUNTER 2024-11-08 14:49 | Observation (INO) | payer MEDICAID ==
--- NOTE | 2024-11-09 14:40 | DVH ---
BIOPHYSICAL PROFILE HISTORY: Term COMPARISON: 11/07/2024 TECHNIQUE: Multiple transabdominal real-time grayscale sonographic images through the gravid uterus of the fetus with duplex Doppler color flow and M-mode spectral analysis FINDINGS: BIOPHYSICAL PROFILE: breathing score: 2 movement score: 2 tone score: 2 Quantitative EVELIO score: 2 (EVELIO: 10.4 Cm.) Total score: 8/8 The cervix obscured by head Single live fetus in cephalic presentation. heart rate 157 beats per minute. Posterior Grade 2 placenta without previa or abruption Single live fetus at 40 weeks 2 days Biophysical profile score 8/8 corresponding to an CECELIA of 11/07/2024 Estimated weight not calculated g IMPRESSION: 1. Biophysical profile score: 8/8 HS:Y
--- NOTE | 2024-11-10 12:51 | DVHDS2 ---
Physician Discharge Progress N Final Diagnosis: postdates 40wks Operations or Procedures: Operations or Procedures nst,sono Condition on Discharge: Good Disposition: Home Discharge Instructions: Diet: Regular Activity: Light activity Medications: na Follow Up Care: Specialist: 2d for inductiom Discharge Statement: "Patient was advised to return to the ER or call 911 if any headaches, dizziness, shortness of breath, chest pain, abdominal pain, bleeding, fevers, or worsening of medical condition. Patient was counseled about treatment plan, medications, possible side effects, patientverbalized understanding. All questions were answered to the best of my ability. This discharge took greater then 30 minutes in planning, reviewing documentation, counseling the patient, and discussing with other team members." Visit Coding OBGYN Date of Service: Nov 09, 2024 Billing Provider: DAKSHA SMITH DO CODE AND TEST CLERK Common Visit Codes: [id number] OBS CARE (HIGH) CODE AND TEST CLERK Procedure Codes: 71737-66- NON-STRESS TEST DAKSHA SMITH DO Nov 10, 2024 12:51
== END 2024-11-09 14:29 | disposition home or self-care (01) ==
LOC: LDRP 11-09 13:00 → UNDOADMOB 11-09 13:00 → LDRP 11-09 13:06
PROVIDERS: ADMIT Obstetrics & Gynecology; ATTEND Obstetrics & Gynecology
DX: O48.0 Post-term pregnancy (principal); Z3A.40 40 weeks gestation of pregnancy; Z79.899 Other long term (current) drug therapy
CPT/HCPCS: 59025; 76819; 81002; 94760; G0378

== ENCOUNTER 2024-11-11 22:18 | Inpatient (IN) | payer MEDICAID ==
[~2024-11-11] VITALS: Ht 172.7 cm; Wt 111.1 kg
[2024-11-11] MEDS ORDERED: NALBUPHINE HCL 10 MG/1ml INJECTION IV PRN (23:00)
--- NOTE | 2024-11-11 23:13 | DVHHP ---
ADMIT DATE: 11/11/2024 CHIEF COMPLAINT: Here for induction of labor. HISTORY OF PRESENT ILLNESS: The patient is a 19-year-old 1, para 0 with EDC 11/07, estimated gestational age of 40+ weeks, admitted for induction of labor. The patient wishes to be induced. Denies having any rupture of membrane or leaking fluid. PAST MEDICAL HISTORY: None. PAST SURGICAL HISTORY: None. SOCIAL HISTORY: None. FAMILY HISTORY: None. OBSTETRIC AND GYNECOLOGIC HISTORY: Primigravid. Blood type O positive, GBS negative, rubella nonimmune. ALLERGIES: No known drug allergies. REVIEW OF SYSTEMS: Consistent with HPI. PHYSICAL EXAMINATION: VITAL SIGNS: Stable, afebrile. HEENT: Within normal limits. CARDIOVASCULAR: Regular rate and rhythm. LUNGS: Clear to auscultation. BREASTS: Symmetrical. No masses. ABDOMEN: Gravid. Positive heart. PELVIC: Closed, thick, high. EXTREMITIES: No clubbing, cyanosis or edema. IMPRESSION: Intrauterine at 40+ weeks, induction of labor. PLAN: Informed consent obtained. We will proceed with Cytotec. The patient will be managed in a.m. by Dr. Heaton safety professional physician. For the time being, she will receive Cytotec and I will manage the patient till next shift when Dr. Heaton will be on. DO REMINGTON Almeida/SHONNA TID: [id number] RECEIPT: [id number]
[2024-11-11] MEDS: LACTATED RINGER'S 1,000 ML IV SCH (23:21)
[2024-11-11 23:30] LABS: Basophils # (auto) 0 10 ^3/uL (0-0.2); Eosinophils # (auto) 0.1 10 ^3/uL (0-0.8); Hematocrit 36.7 % (36.0-46.0); Hemoglobin 11.8 g/dL (12.2-16.2); Monocytes # (auto) 0.7 10 ^3/uL (0-1.3); Nucleated Red Blood Cells % 0.1 %; White Blood Cell 10.6 10^3/uL (4.4-10.8)
[2024-11-11 23:32] LABS: Basophils % (auto) 0.3 % (0.0-2.0); Eosinophils % (auto) 0.8 % (0.0-7.0); Lymphocytes # (auto) 2.1 10 ^3/uL (0.4-5.4); Lymphocytes % (auto) 19.4 % (10.0-50.0); Mean Corpuscular Hemoglobin 25.2 pg (28.0-32.0); Mean Corpuscular Hgb Conc. 32.1 g/dL (32.0-36.0); Mean Corpuscular Volume 78.6 fL (80.0-100.0); Monocytes % (auto) 6.9 % (0.0-12.0); Neutrophils # (auto) 7.7 10 ^3/uL (1.6-8.6); Neutrophils % (auto) 72.6 % (37.0-80.0); Platelet Count (auto) 235 10^3/uL (140-450); Red Blood Cells 4.67 10^6/uL (4.0-5.20); Red Cell Distribution Width 16.8 % (11.8-14.3)
[2024-11-11 23:46] LABS: INR 0.95 (0.9-1.15); Partial Thromboplastin Time 26.8 SEC (24.5-34.5); Prothrombin Time 10.1 sec (9.3-11.8)
[2024-11-11 23:48] LABS: Alanine Aminotransferase 16 U/L (7-40); Albumin 3.8 g/dL (3.2-4.8); Anion Gap 9 (5-15); Aspartate Aminotransferase 21 U/L (13-40); BUN/Creatinine Ratio 16.7 (10.0-20.0); Bilirubin, Total 0.3 mg/dL (0.2-1.0); Blood Urea Nitrogen 11 mg/dL (9-23); Calcium 8.9 mg/dL (8.7-10.4); Carbon Dioxide 22 mmol/L (20-31); Chloride 105 mmol/L (98-107); Glucose 87 mg/dL (74-106); Total Protein 6.5 g/dL (5.7-8.2)
[2024-11-11 23:54] LABS: Urine Bacteria None Seen /hpf (None Seen)
[2024-11-11 23:59] LABS: Alkaline Phosphatase 296 U/L (46-116); Sodium 136 mmol/L (136-145)
[2024-11-12 00:18] LABS: Amphetamine Screen, Urine Neg (NEGATIVE); Barbiturate Scree,Urine Neg (NEGATIVE); Benzodiazephine Screen, Urine Neg (NEGATIVE); Cocaine Screen, Urine Neg (NEGATIVE); Opiate Scree,Urine Neg (NEGATIVE); Phencyclidine Screen, Urine Neg (NEGATIVE)
[2024-11-12 00:22] LABS: Urine Blood Negative /uL (Negative); Urine Clarity Clear (Clear); Urine Color Yellow (Yellow); Urine Mucus FEW (None Seen); Urine Protein, UAD 1+ (Negative); Urine Squamous Epithelial Cell FEW /hpf (<5); Urine Urobilinogen 3 mg/dL (Negative); Urine WBC < 1 /HPF (0-5); Urine pH 6.5 (5.0-9.0)
[2024-11-12 00:27] LABS: Cannabinoid Screen, Urine Neg (NEGATIVE)
[2024-11-12] MEDS: miSOPROStol 50 MCG per PRE-CUT 1/2 TAB PO PRN (01:00)
--- NOTE | 2024-11-12 07:35 | DVHPN2 ---
Chief Complaints Patient reports: No new complaints Nursing reports: No new complaints Objective Medications Current Medications Medications (Trade) Dose Ordered Sig/Celestino Route PRN Reason Start Time Stop Time Status Last Admin Benzocaine (Dermoplast) 1 applic PRN PRN TOP PERINEAL AREA DISCOMFORT 11/11/24 23:00 Lactated Ringer's 1,000 ml @ 125 mls/hr Q8H IV 11/11/24 23:00 11/12/24 02:55 Lidocaine HCl (Xylocaine) 20 ml ONCE PRN IJ PERINEAL AREA DISCOMFORT 11/11/24 23:00 Misoprostol (Cytotec) 50 mcg Q4HPRN PRN PO CERVICAL RIPENING 11/12/24 01:00 11/12/24 05:01 Nalbuphine HCl (Nubain) 10 mg Q4HP PRN IV MODERATE PAIN (4-6 PAIN SCALE) 11/11/24 23:00 Sodium Lauryl Sulfate (Phisoderm) 240 ml PRN PRN TOP PERINEAL AREA DISCOMFORT 11/11/24 23:00 Witch Serenity (Tucks) 1 pad PRN PRN TOP PERINEAL AREA DISCOMFORT 11/11/24 23:00 Lungs: Normal Cardiovascular: Normal Abdominal: Soft Extremities: Normal Others ve-ft/-2/thick Studies Laboratory Tests 11/11/24 23:07 Test 11/11/24 23:07 Range/Units Serum Glucose 87 74-106 mg/dL Ass/Plan Assessment induction of labor Plan give 3rd cytotec pt endorsed to dr sridhar paiz md Visit Coding OBGYN Date of Service: Nov 12, 2024 Billing Provider: DAKSHA SMITH DO OR SCRUB TECH Common Visit Codes: [id number] INP/OBS CARE(HIGH) OR SCRUB TECH Procedure Codes: 01181-17- NON-STRESS TEST DAKSHA SMITH DO Nov 12, 2024 07:34
[2024-11-12] MEDS: ACETAMINOPHEN 325 MG TAB PO PRN (09:08)
[2024-11-12] MEDS: PHISODERM TOP SOLN 240ML BTL TOP PRN (09:08)
[2024-11-12] MEDS: WITCH HAZEL-GLYCERIN PAD TOP PRN (09:08)
[2024-11-12] MEDS: DERMOPLAST 60ML BOTTLE TOP PRN (09:08)
[2024-11-12] MEDS ORDERED: ONDANSETRON HCL 4 MG/2 ML VIAL IV PRN (10:00)
[2024-11-12] MEDS ORDERED: TERBUTALINE SULFATE 1 MG/ML 1ML VIAL SC PRN (17:15)
[2024-11-12] MEDS: LIDOCAINE HCL 2 %PF INJ 10ML AMP IJ ONE (17:30)
[2024-11-12] MEDS: ePHEDrine SULFATE 50 MG/ML AMP IV ONE (17:30)
[2024-11-12] MEDS: NALOXONE HCL 0.4 MG/ML VIAL IV ONE (17:30)
[2024-11-12] MEDS: LACTATED RINGER'S 1,000 ML IV ONE (17:53)
[2024-11-12] MEDS: LACT. RINGERS/OXYTOCIN 20UNITS 1,000 ML IV SCH (19:32)
[2024-11-12] MEDS: ROPIVACAINE HCL 200 ML ONE (19:33)
[2024-11-12] MEDS: LACT. RINGERS/OXYTOCIN 20UNITS 500 ML IV ONE ×2 (22:27→22:28)
[2024-11-12] MEDS: LIDOCAINE 2%HCL (LOCAL ANESTH.) INJ 20ML MDV IJ PRN (22:28)
[2024-11-12] MEDS: METHYLERGONOVINE MALEATE 0.2 MG/ML AMP IM ONE ×2 (23:38→23:40)
[2024-11-13] VITALS (7 sets, daily range): BP systolic 113–124; BP diastolic 68–82; PULSE 76–95; RESP 16–18; TEMP 97.6–98.4; O2SAT 96–100
[2024-11-13] MEDS: LIDOCAINE 2% (LOCAL ANESTH.) PF 5ml SDV ONE (00:36)
[2024-11-13] MEDS: IBUPROFEN 600 MG TAB PO PRN (01:05)
[2024-11-13] MEDS: ACETAMINOPHEN 325 MG TAB PO PRN (06:12)
--- NOTE | 2024-11-13 07:15 | LDN2 ---
Labor and Delivery Note Date 11/13/24 Age 19 0 Para 0 AB 0 EDC 11/07/2024 EGA 40+ Diagnosis post date induction Vaginal Delivery: VTX Vacuum Assisted: No Placenta: Spontaneous Sex: Male Weight 8lbs 5 oz Apgars 9/9 Nuchal Cord Transected: No Amniotic Fluid: Clear Anesthesia Epidural Episiotomy: No Extension: Yes (Grade II midline tear) Repaired with 2-0 chromic EBL 350cc Labs Laboratory Tests 08/16/24 11:15: HIV (1&2) Antibody Negative 06/07/24 11:19: Hepatitis B Surface Antigen Negative, Rubella Antibody Positive Blood Bank 11/11/24 23:07: Blood Type O POSITIVE Complications none Conditions stable Telephone Cleaner none present SHIVA LEVIN DO Nov 13, 2024 07:15
[2024-11-13] MEDS: DOCUSATE SOD 100 MG CAP PO SCH (22:36)
[2024-11-14 03:20] VITALS: BP 104/63; PULSE 77; RESP 16; TEMP 97.8; O2SAT 97
--- NOTE | 2024-11-14 05:38 | DVHPN2 ---
Chief Complaints Patient reports: No new complaints (PPD #1 stable improved, ambulating , minimal lochia) Nursing reports: No new complaints, No abdominal pain, No chest pain, No dizziness, No cough Objective Vitals Vital Signs Date Time Temp Pulse Resp B/P (MAP) Pulse Ox O2 Delivery O2 Flow Rate FiO2 11/14/24 03:20 97.8 77 16 104/63 (77) 97 97.8 11/13/24 19:15 Room Air Medications Current Medications Medications (Trade) Dose Ordered Sig/Celestino Route PRN Reason Start Time Stop Time Status Last Admin Docusate Sodium (Colace Capsule) 200 mg HS PO 11/13/24 22:00 11/13/24 22:36 General: Normal Neck: Normal Lungs: Normal Cardiovascular: Normal Abdominal: Soft Extremities: Normal Skin: Normal Studies Laboratory Tests 11/11/24 23:07 Test 11/11/24 23:07 Range/Units Serum Glucose 87 74-106 mg/dL Ass/Plan Assessment PPD #1 stable improved Plan see DC summary see DC orders SHIVA LEVIN DO Nov 14, 2024 05:38
--- NOTE | 2024-11-14 05:43 | DVHDS2 ---
Discharge Summary Date of Admission Nov 11, 2024 at 22:18 Date of Discharge: Nov 14, 2024 Admitting Diagnosis LABOR INDUCTION Labs/Diagnostic Data: Laboratory Results Test 11/11/24 23:07 11/11/24 22:40 White Blood Count 10.6 10^3/uL (4.4-10.8) Red Blood Count 4.67 10^6/uL (4.0-5.20) Hemoglobin 11.8 g/dL (12.2-16.2) Hematocrit 36.7 % (36.0-46.0) Mean Corpuscular Volume 78.6 fL (80.0-100.0) Mean Corpuscular Hemoglobin 25.2 pg (28.0-32.0) Mean Corpuscular Hemoglobin Concent 32.1 g/dL (32.0-36.0) Red Cell Distribution Width 16.8 % (11.8-14.3) Platelet Count 235 10^3/uL (140-450) Mean Platelet Volume 10.1 fL (6.9-10.8) Neutrophils (%) (Auto) 72.6 % (37.0-80.0) Lymphocytes (%) (Auto) 19.4 % (10.0-50.0) Monocytes (%) (Auto) 6.9 % (0.0-12.0) Eosinophils (%) (Auto) 0.8 % (0.0-7.0) Basophils (%) (Auto) 0.3 % (0.0-2.0) Neutrophils # (Auto) 7.7 10 ^3/uL (1.6-8.6) Lymphocytes # (Auto) 2.1 10 ^3/uL (0.4-5.4) Monocytes # (Auto) 0.7 10 ^3/uL (0-1.3) Eosinophils # (Auto) 0.1 10 ^3/uL (0-0.8) Basophils # (Auto) 0 10 ^3/uL (0-0.2) Nucleated Red Blood Cells 0.1 % Prothrombin Time 10.1 sec (9.3-11.8) Prothrombin Time INR 0.95 (0.9-1.15) Activated Partial Thromboplast Time 26.8 SEC (24.5-34.5) Sodium Level 136 mmol/L (136-145) Potassium Level 4.0 mmol/L (3.5-5.1) Chloride Level 105 mmol/L (98-107) Carbon Dioxide Level 22 mmol/L (20-31) Anion Gap 9 (5-15) Blood Urea Nitrogen 11 mg/dL (9-23) Creatinine 0.66 mg/dL (0.550-1.02) Glomerular Filtration Rate Calc 129 mL/min (>90) BUN/Creatinine Ratio 16.7 (10.0-20.0) Serum Glucose 87 mg/dL (74-106) Calcium Level 8.9 mg/dL (8.7-10.4) Total Bilirubin 0.3 mg/dL (0.2-1.0) Aspartate Amino Transferase (AST) 21 U/L (13-40) Alanine Aminotransferase (ALT) 16 U/L (7-40) Alkaline Phosphatase 296 U/L (46-116) Total Protein 6.5 g/dL (5.7-8.2) Albumin 3.8 g/dL (3.2-4.8) Treponema pallidum Antibody Non-reactive (Negative) Hepatitis C Antibody Negative (Negative) Urine Color Yellow (Yellow) Urine Clarity Clear (Clear) Urine pH 6.5 (5.0-9.0) Urine Specific [place] 1.030 (1.001-1.035) Urine Protein 1+ (Negative) Urine Ketones Trace (Negative) Urine Blood Negative /uL (Negative) Urine Nitrite Negative (Negative) Urine Bilirubin Negative (Negative) Urine Urobilinogen 3 mg/dL (Negative) Urine Leukocyte Esterase Negative /uL (Negative) Urine RBC <1 /hpf (0 - 4) Urine Microscopic WBC < 1 /HPF (0-5) Urine Squamous Epithelial Cells Few /hpf (<5) Urine Bacteria None seen /hpf (None Seen) Urine Mucus Few (None Seen) Urine Glucose Normal mg/dL (Normal) Urine Opiates Screen Neg (NEGATIVE) Urine Fentanyl Screen Neg (NEGATIVE) Urine Barbiturates Screen Neg (NEGATIVE) Urine Phencyclidine Screen Neg (NEGATIVE) Urine Amphetamines Screen Neg (NEGATIVE) Urine Benzodiazepines Screen Neg (NEGATIVE) Urine Cocaine Screen Neg (NEGATIVE) Urine Cannabinoids Screen Neg (NEGATIVE) Other Laboratory Tests 11/11/24 23:07 Brief Hx & Hospital Course: Induction delivery normal 2 nd degree midline posterior repair Consults/Reason for consult none Operations or Procedures none Condition at Discharge: Good Final Diagnosis/Problems List S/P Discharge Disposition: Home Discharge Instruct/Medications Diet: Regular Activity: Light activity (pelvic rest 8 weeks) Follow Up/Referral: 2-3 weeks primary OB physician ; Immediate f/u if persistent fever , heavy lochia, decreased LOC, Severe pain Discharge Statement: "Patient was advised to return to the ER or call 911 if any headaches, dizziness, shortness of breath, chest pain, abdominal pain, bleeding, fevers, or worsening of medical condition. Patient was counseled about treatment plan, medications, possible side effects, patientverbalized understanding. All questions were answered to the best of my ability. This discharge took greater then 30 minutes in planning, reviewing documentation, counseling the patient, and discussing with other team members." ASSESSMENT ASSESSMENT Assessment Visit Coding OBGYN Date of Service: Nov 14, 2024 Billing Provider: SHIVA LEVIN DO MANAGER CONTENT Common Visit Codes: 77313-KFH/OBS SAME DATE (LOW), 23479-MOK/OBS SAME DATE (MOD), 34007-EQN/OBS SAME DATE (HIGH) MANAGER CONTENT Procedure Codes: 10607-UDX DEL INCLUDING , 17509-ERZN W/ CARE SHIVA LEVIN DO Nov 14, 2024 05:43
[2024-11-14 07:15] VITALS: BP 103/63; PULSE 81; RESP 16; TEMP 98; O2SAT 98
== END 2024-11-14 11:36 | disposition home or self-care (01) | DRG 560 ==
LOC: LDRP 22:18
PROVIDERS: ADMIT Obstetrics & Gynecology; ATTEND Obstetrics & Gynecology
PROC: 10E0XZZ Delivery of Products of Conception, External Approach (ICD-10-PCS; principal; 2024-11-13)
PROC: 0KQM0ZZ Repair Perineum Muscle, Open Approach (ICD-10-PCS; 2024-11-13)
PROC: 3E0R3BZ Introduction of Anesthetic Agent into Spinal Canal, Percutaneous Approach (ICD-10-PCS; 2024-11-13)
PROC: 00HU33Z Insertion of Infusion Device into Spinal Canal, Percutaneous Approach (ICD-10-PCS; 2024-11-13)
PROC: 3E0DXGC Introduction of Other Therapeutic Substance into Mouth and Pharynx, External Approach (ICD-10-PCS; 2024-11-13)
DX: O48.0 Post-term pregnancy (principal); Z37.0 Single live birth; O70.1 Second degree perineal laceration during delivery; Z3A.40 40 weeks gestation of pregnancy
CPT/HCPCS: 36415; 59409; 62282; 80053; 80307; 81001; 85025; 85610; 85730; 86780; 86803; 86850; 86900; 86901; 94760; 94762; 96360; 96361; 96365; 96366; 96372; G0378; J2003; J2590

== ENCOUNTER 2025-06-26 19:42 | Emergency (ER) | payer MEDICAID ==
[~2025-06-26] VITALS: Ht 172.7 cm; Wt 112.7 kg
--- NOTE | 2025-06-26 21:05 | ED.PDOC ---
SOB-HPI HPI Comments This is a 19 year-old female who presents to the ED with a chief complaint of cough as of last night. Patient states she went to Urgent care today, took antibiotics and steroids with no relief. Patient does report some relief with breathing treatment. Patient reports having a chest XRAY done with congestion identified. Patient had a flue and covid test done, both results were negative. Patient states she was going to be prescribed Albuterol, but was not due to High Blood Pressure. Patient reports some recent exposure to familial illness. Patient has no further complaints at this time and otherwise denies symptoms of chest pain, SOB, dizziness, weakness, fever, or chills. Chief Complaint: Flu like Time Seen by MD: 20:46 Primary Care Provider: EMMY Sanchez notes: Medications, Allergies Information Source: Patient Mode of Arrival: Ambulatory Severity: Moderate Timing: Hours Duration: Since onset Context: At Rest, With Light Exertion, With Heavy Exertion Associated Signs and Symptoms: Cough Past Medical History PAST MEDICAL HISTORY: Denies Surgical History: Denies all surgeries NETWORK SECURITY ADMINISTRATOR History: Denies all NETWORK SECURITY ADMINISTRATOR Hx Family History Family History: Unknown Social History Smoker: Non-Smoker Alcohol: Denies ETOH Use Drugs: Denies Drug Use Lives In: Home Constitutional: denies: chills, diaphoresis, fatigue, fever, malaise, sweats, weakness, others EENTM: denies: blurred vision, double vision, ear bleeding, ear discharge, ear drainage, ear pain, ear ringing, eye pain, eye redness, hearing loss, mouth pain, mouth swelling, nasal discharge, nose bleeding, nose congestion, nose pain, photophobia, tearing, throat pain, throat swelling, voice changes, others Respiratory: reports: cough; denies: hemoptysis, orthopnea, SOB at rest, shortness of breath, SOB with excertion, stridor, wheezing, others Cardiovascular: denies: chest pain, dizzy spells, diaphoresis, Dyspnea on exertion, edema, irregular heart beat, left arm pain, lightheadedness, palpitations, PND, syncope, others Gastrointestinal: denies: abdomen distended, abdominal pain, blood streaked bowels, constipated, diarrhea, dysphagia, difficulty swallowing, hematemesis, melena, nausea, poor appetite, poor fluid intake, rectal bleeding, rectal pain, vomiting, others Genitourinary: denies: abnormal vagina bleeding, burning, dyspareunia, dysuria, flank pain, frequency, hematuria, incontinence, pain, , vagina discharge, urgency, others Neurological: denies: dizziness, fainting, headache, left sided numbness, left sided weakness, numbness, paresthesia, pre-existing deficit, right sided numbness, right sided weakness, seizure, speech problems, tingling, tremors, weakness, others Musculoskeletal: denies: back pain, gout, joint pain, joint swelling, muscle pain, muscle stiffness, neck pain, others Integumetry: denies: bruises, change in color, change in hair/nails, dryness, laceration, lesions, lumps, rash, wounds, others Allergic/Immunocompromised: denies: Difficulty Healing, Frequent Infections, Hives, Itching, others Hematologic/Lymphatic: denies: anemia, blood clots, easy bleeding, easy bruising, swollen glands, others Endocrine: denies: excessive hunger, excessive sweating, excessive thirst, excessive urination, flushing, intolerance to cold, intolerance to heat, unexplained weight gain, unexplained weight loss, others Psychiatric: denies: anxiety, bipolar disorder, depression, hopeless, panic disorder, schizophrenia, sleepless, suicidal, others All Other Systems: Reviewed and Negative Physical Exam General Appearance: Moderate Distress, Obese HEENT: Normal ENT Inspection, Pharynx Normal, TMs Normal Neck: Full Range of Motion, Non-Tender, Normal, Normal Inspection Respiratory: Wheezing (loud scattered wheezing throughout all lung santana) Cardiovascular: No Edema, No JVD, No Murmur, No Gallop, Normal Peripheral Pulses, Regular Rate/Rhythm Breast Exam: Deferred Gastrointestinal: Non Tender, Normal Bowel Sounds, Soft Genitalia: Deferred Pelvic: Deferred Rectal: Deferred Extremities: No calf tenderness, Normal capillary refill, Normal inspection, Normal range of motion, Non-tender, No pedal edema Musculoskeletal : Apperance: Normal Neurologic: Alert, No Motor Deficits, Normal Affect, Normal Mood, No Sensory Deficits Cerebellar Function: NOT DONE Reflexes: NOT DONE Skin: Dry, Normal Color, Warm Lymphatic: No Adenopathy Was a procedure done? Was a procedure done?: No Differential Dx Differential Diagnosis: Anxiety, Asthma, Bronchitis, Sinusitis X-Ray, Labs, Meds, VS Vital Signs Date Time Temp Pulse Resp B/P (MAP) Pulse Ox O2 Delivery O2 Flow Rate FiO2 11/24/25 21:31 95 Room Air 06/26/25 21:31 98.9 124 20 122/54 (76) 95 98.9 06/26/25 21:16 18 96 Room Air* 0 21 06/26/25 19:45 99.1 127 20 114/73 94 99.1 Current Medications Medications (Trade) Dose Ordered Sig/Celestino Route Start Time Stop Time Status Last Admin Albuterol (Ventolin Medneb) 2.5 mg ONCE ONCE NEB 06/26/25 21:00 06/26/25 21:01 DC 06/26/25 21:15 Ipratropium [place] (Atrovent Medneb) 0.5 mg ONCE ONCE NEB 06/26/25 21:00 06/26/25 21:01 DC 06/26/25 21:15 post-breathing TX shows much improvement, with minimal scattered wheezing noted. Time of 1ST Reevaluation: 21:23 Reevaluation 1ST: Unchanged Time of 2ND Reevaluation: 22:30 Reevaluation 2ND: Improved Patient Education/Counseling: Diagnosis, Treatment Family Education/Counseling: No Family Present SEPSIS Sepsis Screen Date sepsis recognized/suspect: Jun 26, 2025 Time Sepsis recognized/suspect: 1951 Recent Procedure: No On Antibiotic Therapy: No Respiratory Rate >20: No Heart Rate >90: Yes Temp<36 C (96.8 F) or >38.3 C: No SBP <90 or MAP <65 mmHG: No New Acute Mental Status Change: No Is the patient on CPAP, BIPAP,: No Vital Signs Date Time Temp Pulse Resp B/P (MAP) Pulse Ox O2 Delivery O2 Flow Rate FiO2 06/26/25 21:31 95 Room Air 06/26/25 21:31 98.9 124 20 122/54 (76) 95 98.9 06/26/25 21:16 18 96 Room Air* 0 21 06/26/25 19:45 99.1 127 20 114/73 94 99.1 Medications Medications Dose Ordered Sig/Celestino Route Start Time Stop Time Status Last Admin Dose Admin Albuterol 2.5 mg ONCE ONCE NEB 06/26/25 21:00 06/26/25 21:01 DC 06/26/25 21:15 Ipratropium [place] 0.5 mg ONCE ONCE NEB 06/26/25 21:00 06/26/25 21:01 DC 06/26/25 21:15 Departure 1 Departure Time of Disposition: 21:39 Impression: Primary Impression: Asthma Disposition: HOME / SELF CARE / HOMELESS Condition: Stable Additional Instructions: Take medications every 4 hours, as prescribed. Please return to the ED upon any new or worsening symptoms. e-Prescriptions Loratadine (Claritin) 10 Mg Tab 10 MG PO sarah for 30 Days, #30 TAB Prov: JOHNATHAN CASTELLANOS 06/26/25 Albuterol Sulfate (Albuterol Sulfate (5 mg/ml) 0.5%) 1 Neb Neb 1 NEB IN QID, #30 INH Prov: JOHNATHAN CASTELLANOS 06/26/25 Discharged With: Self Critical Care Note Critical Care Time?: No Stability Stability form required: No Heart Score Heart Score: Heart Score Response (Comments) Value History N/A 0 EKG N/A 0 Age N/A 0 Risk Factors N/A 0 Troponin N/A 0 Total 0 I personally scribed for ER ([email or web address]) on 06/26/25 at 21:05. Electronically submitted by Tyra Quigley ([email or web address]). I personally scribed for ER (EMERGENCY) on 06/26/25 at 21:42. Electronically submitted by Tyra Quigley ([email or web address]). ER Jun 26, 2025 21:05 JOHNATHAN CASTELLANOS Jun 27, 2025 02:21
[2025-06-26] MEDS: IPRATROPIUM BROM 0.5 MG/2.5ML INH SOL NEB ONE (21:15)
[2025-06-26] MEDS: ALBUTEROL SULF 2.5 MG/0.5ML(0.5%) NEB SOLN NEB ONE (21:15)
[2025-06-26 21:31] VITALS: BP 122/54; PULSE 124; RESP 20; TEMP 98.9; O2SAT 95
[2025-06-26] MEDS ORDERED: ALBU1NEB5 IN (21:40)
[2025-06-26] MEDS ORDERED: LORA-622 PO (21:45)
== END 2025-06-26 21:53 | disposition home or self-care (01) ==
LOC: ER 19:42
DX: J45.909 Unspecified asthma, uncomplicated (principal); Z79.899 Other long term (current) drug therapy
CPT/HCPCS: 94640